=== PATIENT | male | born 1965 | race African-American/Black ===

== ENCOUNTER 2017-03-10 11:25 | Day surgery (SDC) | payer OTHER ==
[2017-03-10] MEDS ORDERED: FENTAnyl 50 MCG/ML VIAL (13:29)
[2017-03-10] MEDS ORDERED: MIDAZOLAM 1 MG/ML 2 ML INJ ×2 (13:29)
== END 2017-03-10 14:55 | disposition home or self-care (01) ==
LOC: GIL 11:25
DX: Z12.11 Encounter for screening for malignant neoplasm of colon (principal); D12.5 Benign neoplasm of sigmoid colon; K64.8 Other hemorrhoids; K64.4 Residual hemorrhoidal skin tags; I10 Essential (primary) hypertension
CPT/HCPCS: 45380; 88305